=== PATIENT | female | born 1950 | race Caucasian/White ===

== ENCOUNTER 2019-06-09 06:08 | Inpatient (IN) ==
[~2019-06-09 06:08] MED LIST: MORPHINE SULFATE 15 MG TABLET.SA PO PRN; TRANEXAMIC ACID 1,000 MG in NORMAL SALINE 100 ML IV PRN; ceFAZolin SODIUM 1 GM VIAL IV PRN
[2019-06-09] MEDS ORDERED: LIDOCAINE HCL 20 ML VIAL ONE (06:30)
[2019-06-09] MEDS ORDERED: ONDANSETRON HCL/PF 2 MG/ML VIAL ONE (06:31)
[2019-06-09] MEDS ORDERED: PROPOFOL VIAL IV ONE (06:31)
[2019-06-09] MEDS ORDERED: BUPIVACAINE HCL/EPINEPHRINE 50 ML VIAL ONE (06:31)
[2019-06-09] MEDS ORDERED: ceFAZolin SODIUM 1 GM VIAL ONE (06:44)
[2019-06-09] MEDS ORDERED: ISOPROPYL ALCOHOL 480 APPL BTL MC ONE (06:44)
[2019-06-09] MEDS: RINGER'S SOLUTION,LACTATED 1,000 ML IV PRN ×2 (07:08→09:11)
--- NOTE | 2019-06-09 07:20 | ANES ---
Anesthesia Pre Procedure Eval Vitals/Labs: Last Vital Signs Temp 37.2 C 06/09/19 06:31 Pulse 69 06/09/19 06:31 Resp 18 06/09/19 06:31 BP 143/62 06/09/19 06:31 Pulse Ox 96 06/09/19 06:31 HOME MEDICATIONS fluoxetine 20 mg capsule 20 mg PO DAILY #90 cap 12/08/18 [Last Taken 06/08/19] fluticasone propionate 50 mcg/actuation nasal spray,suspension 1 spray ROXANE DAILY #16 g 06/03/19 [Last Taken 06/08/19] lisinopril 10 mg tablet 10 mg PO DAILY #30 tab 06/03/19 [Last Taken Unknown] Clotrimazole/Betamethasone Dip [Lotrisone Cream] 1 applic TOPICAL BID PRN 06/09/19 [Last Taken Unknown] Ketoconazole 120 ml TOPICAL .COMPLEX 06/09/19 [Last Taken 06/08/19] Allergies/Adverse Reactions: Allergies Allergy/AdvReac Type Severity Reaction Status Date / Time penicillin G Allergy Intermediate Itching Verified 06/09/19 06:44 and hives adhesive tape Allergy Mild Rash Verified 06/09/19 06:44 - Planned Procedure Planned Procedure: Left Reverse Total Shoulder Medication List Reviewed:: Yes Allergies Verified: Yes Medical History (Last Reviewed 06/09/19 @ 07:15 by oCy Dutta CRNA) Rotator cuff tear, right (Chronic) Onset Date: Unknown Supra/infraspinatus repair [place] 09/18/18 Hypertension Current non-drinker of alcohol Current tobacco use 4 cig per day Depression Wears glasses Dariers disease Arthralgia of acromioclavicular joint (Resolved) Onset Date: Unknown Basal cell carcinoma Onset Date: ~06/12/17 right ear Breast cancer Onset Date: ~2001 Lt had lumpectomy and lymphnodes Methicillin resistant Staphylococcus aureus infection Onset Date: ~02/2009 Lt shoulder Shoulder pain, left Surgical History (Last Reviewed 06/09/19 @ 07:15 by Coy Dutta CRNA) Cataract Onset Date: ~03/23/18 right eye, H/O repair of rotator cuff Onset Date: ~2004 Dr. Baldemar amezquita. History of ear surgery Onset Date: ~07/01/17 Excision right posterior BCCA ear with STSG Dr. Leong History of incision and drainage Onset Date: ~04/08/10 abdomen wound History of lumpectomy of left breast Onset Date: ~2001 Dr. Molina cancer radiation/ chemo Right shoulder arthroscopy with mini open revision rotator c Onset Date: ~09/18/18 Dr Fam H/O dilation and curettage Family History (Last Reviewed 06/09/19 @ 07:15 by Coy Dutta CRNA) Aunt No problems noted. Uncle Cancer Brother Kidney stones Father , age 60's Myocardial infarction Mother Cancer lung and breast Asthma Heart problem Sister Diabetes Sister Fibromyalgia Sister Heart problem Brother Diabetes Daughter Alive and well Daughter Alive and well - Family Anesthesia History Family History:: no untoward family reactions to anesthesia, no familial bleeding tendencies, no family history of clotting disorders, no family history of premature - Airway/Neck/Teeth Teeth Condition: missing - none up Denture Type: None Neck Exam: full range of motion Mallampatti Score: 2 Thyromental (T-M) distance: > 6 cm Mandibulo Hyoid distance: > 3 cm - Respiratory Smoking Status: Light tobacco smoker Discussed smoking cessation including day of surgery: Yes - none today Sleep Apnea currently treated: No Sleep Apnea by current assessment: No - Cardiovascular Cardiac History: hypertension Tolerate Activity: Fair Heart Sounds: S1 & S2, Regular - Anesthesia Assessment and Plan ASA Class: PS, III Anesthesia Type Plan: General LMA, Block - interscalene block for post op pain relief
[2019-06-09] MEDS ORDERED: MAGNESIUM HYDROXIDE 30 ML UDC PO PRN (09:46)
[2019-06-09] MEDS ORDERED: ACETAMINOPHEN 500 MG TABLET PO PRN (09:46)
[2019-06-09] MEDS ORDERED: MORPHINE SULFATE 2 MG/ML DISP.SYRIN IV PRN (09:46)
[2019-06-09] MEDS ORDERED: ZOLPIDEM TARTRATE 5 MG TABLET PO PRN (09:46)
[2019-06-09] MEDS ORDERED: MAG HYDROX/ALUMINUM HYD/SIMETH 30 ML UDC PO PRN (09:46)
[2019-06-09] MEDS ORDERED: diphenhydrAMINE HCL 50 MG/ML VIAL IV PRN (09:46)
[2019-06-09] MEDS ORDERED: CLOTRIMAZOLE/BETAMET DIPROP 15 APPL TUBE TP PRN (09:49)
--- NOTE | 2019-06-09 09:53 | OR ---
Operative Report - Dictated Report Narrative: DATE OF PROCEDURE: 06/09/2019 PHYSICIAN: Steve Fam MD PERPETUAL INVENTORY CLERK: Nicolas Portillo PA-C (provided and essential set of skilled, educated hands that assisted with transfer, positioning, prepping, draping, manipulation, retraction, placement of implants, irrigation, closure wounds, and application of dressings all which cannot be performed by the available surgical crew) PREOPERATIVE DIAGNOSIS: Left rotator cuff deficient shoulder arthrosis. POSTOPERATIVE DIAGNOSIS: Left rotator cuff deficient shoulder arthrosis. OPERATIONS AND PROCEDURES: Left reverse total shoulder arthroplasty. ANESTHESIA: General plus regional. COMPLICATIONS: None. DRAINS: None. SPECIMENS: Bone. ESTIMATED BLOOD LOSS: 50 mL. RETAINED IMPLANTS: 1. DePuy Delta Xtend cementless metaglene. 2. Delta Xtend glenosphere, 38 mm standard. 3. Delta Xtend size 10 modular humeral CONNOLLY-coated cementless stem. 4. Size 1 left modular eccentric epiphysis CONNOLLY-coated cementless. 5. Delta Xtend standard polyethylene size 38 plus 3 mm. 6. Metaglene locking screws, 36 mm and 36 mm in length. 7. Nonlocking metaglene screw, 18 mm . INDICATIONS FOR PROCEDURE: Mrs. Urbano is a 69-year-old female with significant past history of rotator cuff tears and deficiency. She had treated these conservatively and had an irreparable rotator cuff with some progression of arthrosis of the shoulder and difficulty with activities of daily living in pain. She was seen in clinic and had failed conservative measures. She wished to proceed with surgical treatment. The risks, benefits, and alternatives were discussed in clinic, including the risk of , blood clots, bleeding, infection, nerve/tendon/blood vessel injury, malposition of components, failure of components, wear or limited range of motion, stiffness, and need for additional procedures, and she wished to proceed. Consent was obtained here in the clinic. DESCRIPTION OF PROCEDURE: After marking the correct extremity in the preoperative holding area, the patient was taken to the operating room. A timeout was performed. IV antibiotics consisting of Ancef were administered prior to procedure. The regional followed by general anesthetic was induced by the nurse micro photographer at my request. She was then transitioned to beach chair position with all bony prominences well padded. The head in neutral, legs with SCDs and supported,and the nonoperative arm supported. The surgical arm was prescrubbed with alcohol then prepped and draped in the standard sterile fashion and the skin was covered with ioban. A deltopectoral incision was made and blunt dissection was carried down through the skin. The cephalic vein was identified, protected, and retracted. We then went through the deltopectoral interval, exposing the proximal humerus. It was noted that there was no rotator cuff, supraspinatus and infraspinatus tendon, or teres minor tendon. The subscapularis was intact as well as the biceps. A tag suture was placed in subscapularis tendon as well as the anterior capsule, and this was elevated off the anterior humerus passing along the bicipital groove and into the rotator cuff interval, exposing the proximal humerus. This was then freed off the proximal humerus. A biceps tenotomy was performed and the shoulder was dislocated. The humeral head was noted to show signs of arthrosis. Next, an entry drill was placed down the humerus centered on the longitudinal axis entering off just onto the articular surface on the humeral head. Next were serial reamers up to the size 10 were utilized, which gave good overall cortical contact. Next, a proximal humeral head cut was performed. We made the cut at approximately 10 degrees of retroversion. This appeared to resect an appropriate amount of humeral head. This was then pinned into place and an oscillating saw was utilized to cut this humeral head, protecting the surrounding soft tissues. We then placed a cap over the proximal humerus and turned our attention to the glenoid. The soft tissues were then elevated off the humeral neck as well as circumferentially around the glenoid. The glenoid was exposed. The remaining biceps tendon and labrum were resected. Using tractors, the glenoid was exposed and a guidewire was placed just posterior and inferior to the center of the glenoid. This was made so that it directed slightly superiorly but otherwise perpendicular to the glenoid on the axillary plane. Protecting the surrounding soft tissues, a reamer was utilized in order to remove the remaining cartilage. A general merchandise manager was utilized in order to resect the superior cartilage, and this resulted in a good overall appearance of the glenoid. The center drill lug hole was drilled and had good circumferential bone. The metaglene was then impacted into place and oriented for placement of screws along the mid plane in the supe rior and inferior quadrants of the glenoid as well as anterior to posterior screws. These were drilled and had appropriate overall length of screws on the superior and inferior metaglene screws. Good purchase was obtained with a 36 mm screw superiorly and 36 mm screw inferiorly. The posterior screw was drilled and 18 mm posterior nonlocking screw was placed. We then locked the superior and inferior screws into place. This gave good overall compression down to the glenoid with flat overall appearance and an appropriate alignment. We returned our attention to the proximal humerus. The proximal humeral reaming guide was placed for an eccentric reamer. This was utilized in order to prepare the proximal humerus. The trial stem was assembled on the back table and impacted into place. After placing the trial stem, we then returned to the metaglene. The glenosphere was then secured to the metaglene, impacted, and tightened ensuring that this was seated completely. We then returned to the humeral component and placed the trials of polyethylene inserts and found that the 3mm gave good overall longitudinal traction with no gapping. The shoulder was able to reach 140 degrees of forward flexion and 130 degrees of abduction, external rotation was to 80 degrees and with fulcrum and armpit were unable to hinge the joint out of place, and there was no essentially no gapping of the polyethylene off the humeral head nor any signs of impingement on the glenoid neck. We felt that these were the appropriately placed and sized implants. We then dislocated the shoulder, removed the trial implants, thoroughly irrigated the humerus, impacted the final implants into place in the prior determined retroversion. The trial polyethylene was utilized again and was noted that the actual stem and the trial stem were equal in tension, and thus the final polyethylene was impacted into place. The shoulder was reduced, again noted to be stable, was then thoroughly irrigated. The deltopectoral interval was closed with #0 Vicryl. The deep tissues were then closed with #0 Vicryl, subcutaneous with 3-0 Monocryl, and the skin with jens. Xeroform, 4 x 4, ABD, soft roll, and full arm Tubigrip was applied. The patient was placed in a shoulder immobilizer, awoken, and transferred to postanesthesia care in stable condition. All sponge, needle, and instrument counts were correct prior to closing the wounds. We will obtain postoperative films and be admitted to the floor for postoperative pain control, IV antibiotics, and starting of physical therapy. I anticipate a one to two night hospital stay.
--- NOTE | 2019-06-09 10:02 | ANES ---
Post Anesthesia Discharge - Transfer of Care Transfer of Care handoff given to nurse: Yes - Discharge from PACU Discharge from PACU when meets criteria: Yes
--- NOTE | 2019-06-09 10:07 | ANES ---
Anesthesia Procedure Note Procedure Note: ANESTHESIA PROCEDURE NOTE Date of procedure: 06/09/2019. Time of procedure: 07 50. Performed by: Castillo Mckay CRNA Airplane Dispatcher: Rebeca Goodrich RN . Preprocedure diagnosis: Left shoulder DJD. Post procedure diagnosis: Same. Procedure: Ultrasound-guided left interscalene nerve block Indications: Postoperative analgesia. Findings: Patient brought to operating room #4 and given a general anesthetic with LMA insertion. Patient was then placed in a semi-Fowlers position. The patient's left side of neck was prepped with ChloraPrep. Ultrasound was utilized to identify the brachial plexus in the left interscalene groove. 22- gauge 2 inch regional block needle was advanced under ultrasound guidance until tip of needle was positioned just anterior to brachial plexus. Nerve stimulator was utilized with muscle twitch noted from 0.8 mA down to 0.5 mA. Muscle twitch disappeared at 0.5 mA. A total of 35 mL of 0.5% Marcaine with epinephrine 1- 200,000 was injected with adequate spread of local anesthesia noted around the nerve roots. Regional block needle was removed intact. EBL: Minimal. Fluids: N/A. Specimen: N/A. Post procedure condition: The patient tolerated the procedure well. No complications were noted. Thank you for this consultation Castillo Mckay CRNA
[2019-06-09] MEDS: DEXTROSE 5%-LACTATED RINGERS 1,000 ML IV PRN ×2 (10:48→20:03)
[2019-06-09] MEDS: KETOROLAC TROMETHAMINE 15 MG/ML VIAL IV SCH ×3 (11:46→22:26)
[2019-06-09] MEDS: ceFAZolin SODIUM 1 GM in DEXTROSE 5 % IN WATER 100 ML IV SCH ×6 (11:47→23:38)
[2019-06-09] MEDS: oxyCODONE HCL/ACETAMINOPHEN 1 TAB TABLET PO PRN ×3 (15:33→23:53)
[2019-06-09] MEDS: ASPIRIN 325 MG TABLET.DR PO SCH (20:06)
--- NOTE | 2019-06-09 20:27 | ANES ---
Post Anesthesia Assessment - Vital Signs Vitals: Last Vital Signs Temp 36.8 C 06/09/19 14:24 Pulse 76 06/09/19 19:58 Resp 20 06/09/19 19:58 BP 135/58 06/09/19 19:58 Pulse Ox 98 06/09/19 19:58 Airway Patency: Normal - Mental Status Level Of Consciousness: Awake - Pain Level Pain Score: 0 - N/V Assessment Nausea/Vomiting Presence: None Dehydration:: No
[2019-06-09] MEDS ORDERED: MORPHINE SULFATE 15 MG TABLET.SA PO SCH (21:00)
[2019-06-09] MEDS ORDERED: SENNOSIDES/DOCUSATE SODIUM 1 TAB TABLET PO SCH (21:00)
[2019-06-09] MEDS: ONDANSETRON HCL/PF 2 MG/ML VIAL IV PRN (23:48)
[2019-06-10] MEDS ORDERED: ALPRAZolam 0.25 MG TABLET PO ONE (03:17)
[2019-06-10] MEDS: KETOROLAC TROMETHAMINE 15 MG/ML VIAL IV SCH ×3 (04:54→17:17)
[2019-06-10] MEDS: oxyCODONE HCL/ACETAMINOPHEN 1 TAB TABLET PO PRN ×3 (05:05→15:37)
[2019-06-10] MEDS: ONDANSETRON HCL/PF 2 MG/ML VIAL IV PRN (07:29)
[2019-06-10] MEDS ORDERED: FLUTICASONE PROPIONATE 120 SPRAY INHALER NS SCH (09:00)
[2019-06-10] MEDS ORDERED: FLUoxetine HCL 20 MG CAPSULE PO SCH (09:00)
[2019-06-10] MEDS ORDERED: LISINOPRIL 10 MG TABLET PO SCH (09:00)
[2019-06-10] MEDS: ASPIRIN 325 MG TABLET.DR PO SCH (09:19)
[2019-06-10] MEDS ORDERED: PROCHLORPERAZINE MALEATE 10 MG TABLET PO PRN (09:55)
--- NOTE | 2019-06-10 16:44 | DS ---
(1) Status post reverse total arthroplasty of left shoulder Problem: Acute (2) Rotator cuff arthropathy Problem: Chronic Qualifiers: Laterality: left Date of Discharge:: 06/10/19 Description of Stay: Mrs. Urbano was admitted to the floor after undergoing reverse left total shoulder arthroplasty. Tolerated this well. Was admitted to the floor postoperatively for 24 hours of IV antibiotics, pain control, medical coman agement, and occupational and physical therapy. OT and PT were consulted to assist with activities of daily living and ambulation. Was made weightbearing as tolerate. She was in immobilizer left upper extremity. Pain was initially controlled with IV regimen. This was transitioned to oral once tolerating a by mouth intake. Was resumed on home diet and medications. SCD and PAN hose were utilized for DVT prophylaxis. Vital signs remained stable to the hospital course. BMP was reviewed and was stable. Physical examination throughout the hospital course showed an extremity that had sensation that was intact to light touch, palpable pulses, a benign wound, motor intact to the toes, ankle, and knee. Once an oral pain regimen was tolerated and physical therapy goals were met, it was felt that they were stable for discharge to home. Instructions: Continue with weightbearing as tolerated. Left upper extremity in immobilizer except for with exercises and therapy. Keep wound clean and dry. If you note any drainage or for comfort you can cover with dry gauze and tape. Change every 2-3 days as needed. Continue with physical therapy. Resume home diet. Report any fever over 101.5 Fahrenheit, uncontrolled pain, increased drainage, foul odor of drainage, new or increased calf pain or shortness of breath, or any other significant complaints. A 325mg twice daily aspirin will be started and continued for 1 month postoperative. No driving until instructed otherwise. Follow up in approximately 10-14 days. Procedures Performed: see notes below List Procedures: Left reverse total shoulder arthroplasty Discharge Location: Home Disposition: Home self-care Condition: Good Discharge Activity: Activity as tolerated, Other - In immobilizer Discharge Diet: General/regular food Referrals: Steve Fam MD [Staff Physician] - 06/24/19 9:30 am Additional Patient Instructions (free text): Physical Therapy at [facility] in [place], [place] on FridayJune 11 at 11:00am. Please fax order to fax # [phone]. Follow up Orthopedic appointment with Dr. Fam on June 24 at 9:30am. Prescriptions (Any new or edited meds): Prochlorperazine Maleate [Compazine] 10 mg PO Q6H PRN #30 tab PRN Reason: Nausea Transmission Status: Pending to [place], [place] oxyCODONE HCL/ACETAMINOPHEN [Percocet 5 MG/325 MG] 2 tab PO Q4H PRN #60 tab PRN Reason: Moderate Pain (Pain Scale 4-6) Transmission Status: Received by [place], [place] Sennosides/Docusate Sodium [Senokot-S] 2 tab PO HS #30 tab Transmission Status: Pending to [place], [place] Complete Home Medications List: Complete Home Medication List: fluoxetine 20 mg capsule 20 mg PO DAILY #90 cap 12/08/18 fluticasone propionate 50 mcg/actuation nasal spray,suspension 1 spray ROXANE DAILY #16 g 06/03/19 lisinopril 10 mg tablet 10 mg PO DAILY #30 tab 06/03/19 Clotrimazole/Betamethasone Dip [Lotrisone Cream] 1 applic TOPICAL BID PRN 06/09/19 Ketoconazole 120 ml TOPICAL .COMPLEX 06/09/19 Aspirin [Aspirin Enteric Coated] 325 mg PO BID tablet. 06/10/19 Prochlorperazine Maleate [Compazine] 10 mg PO Q6H PRN #30 tab 06/10/19 Sennosides/Docusate Sodium [Senokot-S] 2 tab PO HS #30 tab 06/10/19 oxyCODONE HCL/ACETAMINOPHEN [Percocet 5 MG/325 MG] 2 tab PO Q4H PRN #60 tab 06/10/19 Amb Orders for Discharge: PT Evaluation and Treatment* Facility: [facility], Location: Rehabilitation Services
[2019-06-10 17:23] VITALS: BP 117/61
== END 2019-06-10 17:45 | disposition home or self-care (01) | DRG 483 ==
LOC: MS 06:08
PROVIDERS: ADMIT Orthopaedic Surgery; ATTEND Orthopaedic Surgery
DX: M75.122 Complete rotator cuff tear or rupture of left shoulder, not specified as traumatic; M19.012 Primary osteoarthritis, left shoulder; I10 Essential (primary) hypertension
CPT/HCPCS: 73030; 97110; 97116; 97161; 97165; J2405